=== PATIENT | female | born 1925 | race African-American/Black ===

== ENCOUNTER 2017-05-09 22:29 | Emergency (ER) | payer OTHER, MEDICARE ==
[2017-05-09 22:46] VITALS: TEMP 98.3; BMI 25.8
--- NOTE | 2017-05-09 23:22 | PDOC ---
History of Present Illness - General Chief Complaint: Nausea/Vomiting Stated Complaint: VOMITTING Time Seen by Provider: 05/09/17 22:41 - History of Present Illness Initial Comments: 05/09/17 23:18 "Patient is a 89 year old female, residing at [facility], with a significant past medical history of Dementia, COPD, Chronic respiratory failure , Afib, HTN, SAH s/p trach and PEG, who presents to the ED for 2 episodes of vomiting that began 1 hour prior to arrival. Per EMS, patient was reported to have vomited x2 while at the OR. Report received from OR staff was that the vomit was brown colored. Pt was sent to ER for evaluation of possible GI bleed. Pt is awake and alert but non-verbal, non-communicative. Allergies: None Surgical history: Craniotomy, V-P shunt. Tracheostomy. PEG. Social history: Lives at [facility]. No smoking. No alcohol. No illicit drugs. PMD: Dr. Henriquez " Past History - Past Medical History Allergies/Adverse Reactions: Allergies Allergy/AdvReac Type Severity Reaction Status Date / Time No Known Allergies Allergy Verified 05/09/17 22:49 Home Medications: Ambulatory Orders Unobtainable [Unobtainable] 05/10/17 Asthma: (resp failure) Cardiac Disorders: Yes (atrial fibrillation) CVA: Yes (subarachnoid hemorrhage) COPD: Yes Dementia: Yes Diabetes: No GI Disorders: Yes (GT) HTN: Yes - Surgical History Abdominal Surgery: Yes (g.tube) GI Surgery: Yes (g-tube) Lung Surgery: (tracheostomy) Neurologic Surgery: Yes (ventriculoperitoneal shunt,craniotomy02/14/12) - Immunization History Td Vaccination: Yes TDAP Vaccination: Yes Immunization Up to Date: Yes - Suicide/Smoking/Psychosocial Hx Smoking Status: No Smoking History: Unknown if ever smoked Years of Tobacco Use: 0 Have you smoked in the past 12 months: No Number of Cigarettes Smoked Daily: 0 Cigars Per Day: 0 Hx Alcohol Use: No Drug/Substance Use Hx: No Substance Use Type: None Hx Substance Use Treatment: No Review of Systems - Review of Systems Able to Perform ROS?: No (non-verbal) *Physical Exam - Vital Signs Last Vital Signs Temp Pulse Resp BP Pulse Ox 98.3 F 86 18 126/76 100 05/09/17 22:43 05/09/17 22:43 05/09/17 22:43 05/09/17 22:43 05/09/17 22:43 - Physical Exam Comments: 05/09/17 23:20 "GENERAL: Awake, alert, in no acute distress HEAD: No signs of trauma EYES: PERRLA, EOMI, sclera anicteric, conjunctiva clear ENT: Trach collar in place, Auricles normal inspection, hearing grossly normal, nares patent, oropharynx clear without exudates. Moist mucosa NECK: Nontender, no stepoffs, Normal ROM, supple, no lymphadenopathy, JVD, or masses LUNGS: Breath sounds equal, clear to auscultation bilaterally. No wheezes, and no crackles HEART: Regular rate and rhythm, normal S1 and S2, no murmurs, rubs or gallops ABDOMEN: PEG tube in place, Soft, nontender, normoactive bowel sounds. No guarding, no rebound. No masses Rectal: Brown stool, no melena, no hematochezia EXTREMITIES: Normal range of motion, no edema. No clubbing or cyanosis. No cords, erythema, or tenderness NEUROLOGICAL: Cranial nerves II through XII intact. 5/5 strength and sensation in all extremities, Normal speech, normal gait SKIN: Warm, Dry, normal turgor, no rashes or lesions noted. ED Treatment Course - LABORATORY CBC & Chemistry Diagram: 05/10/17 03:38 05/09/17 23:38 - RADIOLOGY Radiology Studies Ordered: Category Date Time Status CHEST X-RAY PORTABLE* [RAD] Stat Radiology 05/09/17 22:47 Completed Medical Decision Making - Medical Decision Making 05/09/17 23:21 89 F sent from OR to r/o GI bleed. Pt with stable vitals, well appearing with non-focal exam. Will check stool for heme and trend CBC. - Labs, serial H/H - Stool guaiac 05/10/17 01:23 Pt with guaiac negative brown stool. No episodes of emesis in ER. Initial H/H is normal. Will repeat after 4 hours to trend. If H/H stable, GI bleed is unlikely. Pt with slightly elevated lactate of 2.4 Will repeat lactate and CBC @ 3:30. Pt signed out to night team at 2AM. Case discussed in detail with oncoming Emergency Physician Dr. Sinisterra including history, physical exam and ancillary studies. Oncoming Emergency Physician has assumed care for the patient and will complete the evaluation and treatment. Patient is aware of the plan. *DC/Admit/Observation/Transfer Diagnosis at time of Disposition: Vomiting - Discharge Dispostion Disposition: HOME - Patient Instructions Printed Discharge Instructions: DI for Vomiting -- Adult
[2017-05-09 23:49] LABS: BASOPHIL 0.4 % (0-2.0); EOSINOPHIL 0.5 % (0-4.5); MCH 29.8 pg (25.7-33.7); MCHC 33.2 g/dl (32.0-36.0); MEAN CELL VOLUME 89.6 fl (80-96); MEAN PLT VOLUME 9.7 fl (7.5-11.1); PLATELET COUNT 195 K/MM3 (134-434); RDW 13.9 % (11.6-15.6); WHITE BLOOD COUNT 8.8 K/mm3 (4.0-10.0)
[2017-05-10 00:01] LABS: INR 1.04 (0.82-1.09); PROTHROMBIN TIME (PATIENT) 11.7 SEC (9.98-11.88)
[2017-05-10 00:12] LABS: ALBUMIN 3.4 g/dl (3.4-5.0); ALK PHOS 168 U/L (45-117); ANION GAP 8 (8-16); BILIRUBIN,TOTAL 0.5 mg/dL (0.2-1.0); CALCIUM 9.2 mg/dL (8.5-10.1); CO2 27 mmol/L (21-32); CREATININE 0.7 mg/dL (0.55-1.02); GLUCOSE,RANDOM 87 mg/dL (74-106); SGOT/AST 13 U/L (15-37); SGPT/ALT 20 U/L (12-78); TOT PROT 8.1 g/dl (6.4-8.2)
[2017-05-10 00:16] LABS: CPK 35 IU/L (26-192)
[2017-05-10 00:17] LABS: TROPONIN I < 0.02 ng/ml (0.00-0.05)
[2017-05-10] MEDS ORDERED: SODIUM CHLORIDE 500 ML IV STA (00:45)
[2017-05-10 04:54] LABS: BASOPHIL 0.6 % (0-2.0); EOSINOPHIL 0.7 % (0-4.5); MCH 29.9 pg (25.7-33.7); MCHC 33.3 g/dl (32.0-36.0); MEAN CELL VOLUME 89.9 fl (80-96); MEAN PLT VOLUME 10.9 fl (7.5-11.1); NEUTROPHILS 55.2 % (42.8-82.8); PLATELET COUNT 172 K/MM3 (134-434); RDW 13.9 % (11.6-15.6); WHITE BLOOD COUNT 8.7 K/mm3 (4.0-10.0)
--- NOTE | 2017-05-10 04:58 | PDOC ---
*Physical Exam - Vital Signs Last Vital Signs Temp Pulse Resp BP Pulse Ox 98.3 F 86 18 126/76 100 05/09/17 22:43 05/09/17 22:43 05/09/17 22:43 05/09/17 22:43 05/09/17 22:43 ED Treatment Course - LABORATORY CBC & Chemistry Diagram: 05/10/17 03:38 05/09/17 23:38 - ADDITIONAL ORDERS Additional order review: Laboratory Results 05/10/17 05/10/17 05/09/17 03:38 00:32 23:38 PT with INR INR PTT (Actin FS) Sodium Potassium Chloride Carbon Dioxide Anion Gap BUN Creatinine Creat Clearance w eGFR Random Glucose Lactic Acid 0.8 Calcium Total Bilirubin AST ALT Alkaline Phosphatase Creatine Kinase 35 Troponin I < 0.02 Total Protein Albumin Lipase Stool Occult Blood Negative Blood Type Antibody Screen 05/09/17 05/09/17 05/09/17 23:38 23:38 23:38 PT with INR INR PTT (Actin FS) Sodium 136 Potassium 4.6 Chloride 101 Carbon Dioxide 27 Anion Gap 8 BUN 20 H Creatinine 0.7 Creat Clearance w eGFR > 60 Random Glucose 87 D Lactic Acid 2.4 H* Calcium 9.2 Total Bilirubin 0.5 AST 13 L D ALT 20 D Alkaline Phosphatase 168 H Creatine Kinase Troponin I Total Protein 8.1 Albumin 3.4 Lipase 85 Stool Occult Blood Blood Type Antibody Screen 05/09/17 05/09/17 23:38 23:38 PT with INR 11.70 INR 1.04 PTT (Actin FS) 31.0 Sodium Potassium Chloride Carbon Dioxide Anion Gap BUN Creatinine Creat Clearance w eGFR Random Glucose Lactic Acid Calcium Total Bilirubin AST ALT Alkaline Phosphatase Creatine Kinase Troponin I Total Protein Albumin Lipase Stool Occult Blood Blood Type O POSITIVE Antibody Screen Negative 05/10/17 05/09/17 03:38 23:38 RBC 3.95 4.39 MCV 89.9 89.6 MCHC 33.3 33.2 RDW 13.9 13.9 MPV 10.9 D 9.7 Neutrophils % 55.2 61.0 Lymphocytes % 34.4 30.2 D Monocytes % 9.1 7.9 Eosinophils % 0.7 0.5 D Basophils % 0.6 0.4 - Medications Given in the ED: ED Medications Discontinued Medications Generic Name Dose Route Start Last Admin Trade Name Freq PRN Reason Stop Dose Admin Sodium Chloride 500 mls @ 1,000 mls/hr 05/10/17 00:45 05/10/17 01:04 Normal Saline - IV 05/10/17 01:14 1,000 mls/hr ASDIR STA Administration Medical Decision Making - Medical Decision Making 05/10/17 04:59 labs stable. No vomiting since pt has been in the department. Will discharge back to [place]. *DC/Admit/Observation/Transfer Diagnosis at time of Disposition: Vomiting - Discharge Dispostion Admit: No - Patient Instructions Printed Discharge Instructions: DI for Vomiting -- Adult
--- NOTE | 2017-05-10 08:46 | PDOC ---
*Physical Exam - Vital Signs Last Vital Signs Temp Pulse Resp BP Pulse Ox 98.3 F 65 18 129/76 100 05/09/17 22:43 05/10/17 08:31 05/10/17 08:31 05/10/17 08:31 05/10/17 08:31 ED Treatment Course - LABORATORY CBC & Chemistry Diagram: 05/10/17 03:38 05/09/17 23:38 - ADDITIONAL ORDERS Additional order review: Laboratory Results 05/10/17 05/10/17 05/09/17 03:38 00:32 23:38 PT with INR INR PTT (Actin FS) Sodium Potassium Chloride Carbon Dioxide Anion Gap BUN Creatinine Creat Clearance w eGFR Random Glucose Lactic Acid 0.8 Calcium Total Bilirubin AST ALT Alkaline Phosphatase Creatine Kinase 35 Troponin I < 0.02 Total Protein Albumin Lipase Stool Occult Blood Negative Blood Type Antibody Screen 05/09/17 05/09/17 05/09/17 23:38 23:38 23:38 PT with INR INR PTT (Actin FS) Sodium 136 Potassium 4.6 Chloride 101 Carbon Dioxide 27 Anion Gap 8 BUN 20 H Creatinine 0.7 Creat Clearance w eGFR > 60 Random Glucose 87 D Lactic Acid 2.4 H* Calcium 9.2 Total Bilirubin 0.5 AST 13 L D ALT 20 D Alkaline Phosphatase 168 H Creatine Kinase Troponin I Total Protein 8.1 Albumin 3.4 Lipase 85 Stool Occult Blood Blood Type Antibody Screen 05/09/17 05/09/17 23:38 23:38 PT with INR 11.70 INR 1.04 PTT (Actin FS) 31.0 Sodium Potassium Chloride Carbon Dioxide Anion Gap BUN Creatinine Creat Clearance w eGFR Random Glucose Lactic Acid Calcium Total Bilirubin AST ALT Alkaline Phosphatase Creatine Kinase Troponin I Total Protein Albumin Lipase Stool Occult Blood Blood Type O POSITIVE Antibody Screen Negative 05/10/17 05/09/17 03:38 23:38 RBC 3.95 4.39 MCV 89.9 89.6 MCHC 33.3 33.2 RDW 13.9 13.9 MPV 10.9 D 9.7 Neutrophils % 55.2 61.0 Lymphocytes % 34.4 30.2 D Monocytes % 9.1 7.9 Eosinophils % 0.7 0.5 D Basophils % 0.6 0.4 - Medications Given in the ED: ED Medications Discontinued Medications Generic Name Dose Route Start Last Admin Trade Name Freq PRN Reason Stop Dose Admin Sodium Chloride 500 mls @ 1,000 mls/hr 05/10/17 00:45 05/10/17 01:04 Normal Saline - IV 05/10/17 01:14 1,000 mls/hr ASDIR STA Administration Medical Decision Making - Medical Decision Making 05/10/17 08:45 Patient signed out to me by Dr. Hernandez as pending transportation for discharge. Patient with no complaints this morning and no episodes of vomiting. Vitals are normal. Transport has arrived to take the patient back to [facility]. *DC/Admit/Observation/Transfer Diagnosis at time of Disposition: Vomiting - Referrals - Patient Instructions Printed Discharge Instructions: DI for Vomiting -- Adult - Post Discharge Activity
[2017-05-10 08:59] VITALS: BP 126/74; PULSE 68
--- NOTE | 2017-05-10 09:05 | EKG ---
Test Reason : Blood Pressure : / mmHG Vent. Rate : 081 BPM Atrial Rate : 081 BPM P-R Int : 268 ms QRS Dur : 114 ms QT Int : 364 ms P-R-T Axes : 030 -03 -11 degrees QTc Int : 422 ms SINUS RHYTHM WITH 1ST DEGREE A-V BLOCK WITH PREMATURE ATRIAL COMPLEXES LOW VOLTAGE QRS RIGHT BUNDLE BRANCH BLOCK ABNORMAL ECG Confirmed by ZACHARIAH EUBANKS MD ([id number] on 05/10/2017 9:05:32 AM Referred By: Confirmed By:ZACHARIAH EUBANKS MD
== END 2017-05-10 08:57 | disposition home or self-care (01) ==
LOC: JER 22:29
PROC: 3E0337Z Introduction of Electrolytic and Water Balance Substance into Peripheral Vein, Percutaneous Approach (ICD-10-PCS; principal; 2017-05-09)
DX: R11.10 Vomiting, unspecified (principal)
CPT/HCPCS: 36415; 71010-TC; 80053; 82272; 82550; 83605; 83690; 84484; 85025; 85610; 85730; 86850; 86900; 86901; 93005; 93010; 99283-25